=== PATIENT | male | born 1990 | race Caucasian/White ===

== ENCOUNTER 2019-02-07 12:16 | Outpatient (CLI) | payer BC ==
--- NOTE | 2019-02-07 14:23 | ULT ---
\ABDOMINAL ULTRASOUND COMPLETE: HISTORY: Abdominal pain. FINDINGS: There is coarse increased liver echogenicity, evidence for fatty change with an enlarged liver. Ther e are some areas of fatty sparing adjacent to the gallbladder. There appears to be some mobile nonsh adowing sludge within the gallbladder without lucia gallstones or gallbladder wall thickening or paula cholecystic fluid. Common bile duct is 0.2 cm. Visualized pancreas, IVC, and aorta are unremarkable. Minimal splenomegaly up to 15.1 cm. The kidne ys are unremarkable without hydronephrosis. IMPRESSION: Exam is somewhat limited because of body habitus. Minimal hepatomegaly with coarse increased liver e chogenicity, evidence for fatty change. Minimal splenomegaly. Mobile nonshadowing debris within the gallbladder felt to probably represent sludge. No evidence for acute cholecystitis. No common duct dilatation. POS: C
== END 2019-02-07 12:17 | disposition home or self-care (01) ==
LOC: BICULT 12:16
PROVIDERS: ATTEND Family Medicine
DX: R10.84 Generalized abdominal pain (principal); K76.0 Fatty (change of) liver, not elsewhere classified; R93.2 Abnormal findings on diagnostic imaging of liver and biliary tract; R16.2 Hepatomegaly with splenomegaly, not elsewhere classified
CPT/HCPCS: 76700